=== PATIENT | female | born 1965 | race Caucasian/White ===

== ENCOUNTER 2018-11-02 21:04 | Emergency (ER) | payer BC ==
[~2018-11-02] VITALS: Ht 157.5 cm; Wt 79.4 kg
--- NOTE | 2018-11-02 22:49 | NUR ---
Pt. transferred from room 1B, at bedside for MSE
[2018-11-02] MEDS ORDERED: IBUPROFEN 600 MG TABLET ONE (22:58)
[2018-11-02] MEDS ORDERED: HYDROCODONE/APAP 5-325MG TABLET ONE (22:58)
[2018-11-02] MEDS ORDERED: HYDROCODONE/APAP 5-325MG TABLET PO ONE (23:00)
[2018-11-02] MEDS ORDERED: IBUPROFEN 600 MG TABLET PO ONE (23:00)
--- NOTE | 2018-11-02 23:11 | NUR ---
Patient discharged to home in stable conditon. Written and verbal after care instructions given. Patient verbalizes understanding of instructions. Pt. d/c per MD orders, d/c papers signed, ID band removed, ambulated off unit w/ daughter using cane, left in private vehicle driven by daughter, instructed not to drive, NAD
== END 2018-11-02 23:14 | disposition home or self-care (01) ==
LOC: ER 21:06
DX: M25.561 Pain in right knee (principal)
CPT/HCPCS: A4663